=== PATIENT | female | born 1985 | race Caucasian/White ===

== ENCOUNTER 2017-07-22 18:55 | Emergency (ER) | payer BC ==
[2017-07-22 20:21] VITALS: BP 121/73
[2017-07-22] MEDS ORDERED: Nitrofurantoin Macrocrystals* 50 MG CAP PO ONE (20:27)
--- NOTE | 2017-07-22 20:28 | UC ---
Complaint Female HPI - HPI Summary HPI Summary: PT IS C/O FREQUENT BURNING URINATION SINCE THIS AFTERNOON - History Of Current Complaint Chief Complaint: UCGU Stated Complaint: URINARY COMPLAINT Time Seen by Provider: 07/22/17 20:22 Hx Obtained From: Patient Hx Last Menstrual Period: 07/19/17 ?: No Onset/Duration: Gradual Onset Timing: Constant Severity Initially: Moderate Severity Currently: Moderate Pain Intensity: 5 Character: Burning Aggravating Factor(s): Nothing Alleviating Factor(s): Nothing Associated Signs And Symptoms: Positive: Negative - Risk Factors Ectopic Risk Factor: Negative - Allergies/Home Medications Allergies/Adverse Reactions: Allergies Allergy/AdvReac Type Severity Reaction Status Date / Time No Known Allergies Allergy Verified 07/22/17 20:14 PMH/Surg Hx/FS Hx/Imm Hx Previously Healthy: Yes - Surgical History Surgical History: None - Family History Known Family History: Positive: None - Social History Alcohol Use: Occasionally Substance Use Type: None Smoking Status (MU): Never Smoked Tobacco Review of Systems Constitutional: Negative Skin: Negative Eyes: Negative ENT: Negative Respiratory: Negative Cardiovascular: Negative Gastrointestinal: Negative Genitourinary: Dysuria, Frequency, Urgency Is Patient Immunocompromised?: No All Other Systems Reviewed And Are Negative: Yes Physical Exam Triage Information Reviewed: Yes Appearance: Well-Appearing Vital Signs: Initial Vital Signs Temp 98.6 F 07/22/17 20:15 Pulse 80 07/22/17 20:15 Resp 16 07/22/17 20:15 BP 121/73 07/22/17 20:15 Pulse Ox 100 07/22/17 20:15 Vital Signs Reviewed: Yes Eyes: Positive: Conjunctiva Clear ENT: Positive: Normal ENT inspection Neck: Positive: Supple, Nontender, No Lymphadenopathy Respiratory: Positive: Lungs clear, Normal breath sounds, No respiratory distress Cardiovascular: Positive: RRR, No Murmur Abdomen Description: Positive: Nontender, No Organomegaly, Soft. Negative: CVA Tenderness (R), CVA Tenderness (L), Guarding Bowel Sounds: Positive: Present Neurological: Positive: Alert Psychological: Positive: Age Appropriate Behavior Skin Exam: Normal Complaint Female Dx - Course Course Of Treatment: U/A = 3+ BLOOD, 2+ LEUK, HX C/W UTI THUS WILL TX. - Differential Dx/Diagnosis Provider Diagnoses: URINARY TRACT INFECTION Discharge - Discharge Plan Condition: Stable Disposition: HOME Prescriptions: Nitrofurantoin Macrocrystals* [Macrodantin*] 100 mg PO BID 5 Days #10 cap Patient Education Materials: Urinary Tract Infection in Women (DC) Referrals: Juaquin Brown MD [Medical Doctor] - 7 Days
== END 2017-07-22 20:43 | disposition home or self-care (01) ==
LOC: UCCORT 18:55
DX: N39.0 Urinary tract infection, site not specified (principal)
CPT/HCPCS: 81003; 87077; 87086; 87186; 99212; A9270-GY; G0463